=== PATIENT | female | born 1975 | race Caucasian/White ===

== ENCOUNTER 2016-11-13 08:17 | Day surgery (SDC) | payer OTHER ==
[~2016-11-13] VITALS: Ht 162.6 cm; Wt 104.3 kg
[~2016-11-13 08:17] MED LIST: CIPROFLOXACIN500 M1 PO; CLARITIN,ALAVAR10 MG PO; CLINDAMYCIN PHO60 M1 TP; FLEXERIL10 MG PO; FUTURO RESTORI1 EACH MC; GABAPENTIN300 MG PO; IRON325 M1 PO; METHOCARBAMOL500 MG PO; NAPROSYN500 MG PO; NEURONTIN600 MG PO; NOHOMEMEDS; PERCOCET 5/31 TABLET PO; Protonix PO; ROXICODONE15 MG PO; TYLENOL EXTRA500 MG PO; VITAMIN D31000 UNIT PO; VYVANSE70 MG PO; WELLBUTRIN XL300 MG PO; XOLEGEL45 GM TP; ZANAFLEX2 MG PO; ZANTAC150 MG PO
[2016-11-13 09:43] VITALS: BP 123/70
[2016-11-13] MEDS ORDERED: PERCOCET 5/31 TABLET PO (11:14)
[2016-11-13 12:05] VITALS: BP 138/74
[2016-11-13 12:50] VITALS: BP 129/74
== END 2016-11-13 12:43 | disposition home or self-care (01) ==
LOC: SDC 08:17
PROC: 0U5B8ZZ Destruction of Endometrium, Via Natural or Artificial Opening Endoscopic (ICD-10-PCS; principal; 2016-11-13)
DX: N92.0 Excessive and frequent menstruation with regular cycle (principal); N93.8 Other specified abnormal uterine and vaginal bleeding; N84.0 Polyp of corpus uteri; Z98.51 Tubal ligation status; D50.9 Iron deficiency anemia, unspecified; Z80.49 Family history of malignant neoplasm of other genital organs; Z82.49 Family history of ischemic heart disease and other diseases of the circulatory system; D35.01 Benign neoplasm of right adrenal gland; Z68.41 Body mass index [BMI] 40.0-44.9, adult; Z87.891 Personal history of nicotine dependence; Z83.3 Family history of diabetes mellitus; Z88.5 Allergy status to narcotic agent
CPT/HCPCS: 88305; J0690; J1100; J1885; J2250; J2405; J3010